=== PATIENT | male | born 1995 | race American Indian/Alaskan Native ===

== ENCOUNTER 2020-04-20 18:02 | Emergency (ER) | payer MEDICAID ==
[2020-04-20 18:25] VITALS: BP 133/72
--- NOTE | 2020-04-20 18:35 | Emergency Department Report ---
Chief Complaint: Back Pain/Injury Stated Complaint: BACK PAIN Time Seen by Provider: 04/20/20 18:34 - HPI History of Present Illness: Patient is a 24-year-old male presents emergency room with complaints of lower back pain that began 5 months ago. He states he has been seeing a chiropractor for this back pain. He has not seen a primary care doctor or a spine doctor. He denies any fall or injury. He denies any fever, vomiting, diarrhea, dysuria, dark urine, abdominal pain, numbness, weakness, bowel or bladder incontinence. Patient denies any past medical history. He denies any daily medications. He denies any allergies to medications. Vitals are stable On exam: Non toxic appearing, no acute distress atraumatic, normocephalic normal appearance of the eyes, PERRL, EOMI, no periorbital edema or ecchymosis moist mucus membranes regular heart rate and rhythm, no gallops, no rubs, no murmurs breath sounds are clear bilaterally, no w/r/r, no stridor, no respiratory distress, no accessory muscle use No paraspinal or spinal C-spine, T-spine, L-spine tenderness palpation, full range of motion, no step-offs, no deformities A&O x4, no focal neuro deficit, normal gait, 5 out of 5 muscle strength in the bilateral upper extremities and bilateral lower extremities, sensation intact throughout skin is warm, dry, intact Patient presents for chronic back pain which has been occurring for 5 months and he has been seeing a chiropractor He has not seen a primary care doctor or orthopedic/spine doctor He has no midline tenderness, no step-offs, no deformities, no focal neuro deficits He has no red flag warning signs of back pain, no trauma, no unexplained weight loss, no neuro deficits, age is not greater than 50, no fever, no IV drug use, no steroid use, no history of cancer Discussed supportive care and symptomatic treatment with patient Patient referred to primary care doctor and orthopedic/spine Discussed strict return precautions with patient Medical screening examination performed and there is no threat to life or limb at this time - Exam Vital Signs: Vital Signs 04/20/20 18:23 Temperature 98.4 F Pulse Rate 72 Respiratory 20 Rate Blood Pressure 133/72 [Right] O2 Sat by Pulse 98 Oximetry MSE screening note: Focused history and physical exam performed. Due to findings the following was ordered: ED Disposition for MSE Clinical Impression: Chronic back pain Qualifiers: Back pain location: low back pain Back pain laterality: bilateral Sciatica presence: without sciatica Qualified Code(s): M54.5 - Low back pain Disposition: MED SCREENING EXAM-LEFT Is pt being admited?: No Does the pt Need Aspirin: No Condition: Stable Instructions: Chronic Pain, Adult Additional Instructions: May alternate Tylenol or ibuprofen as needed for discomfort. May use ice pack, heating pad, rest, Epsom salt bath. Follow-up with a primary care doctor. Fol low-up with orthopedic/spine doctor. Return to emergency room for any new or worsening symptoms. Referrals: [facility] [Provider Group] - 2-3 Days NAT MCCULLOUGH II, MD [Staff Physician] - 2-3 Days BROCK PETERS MD [Staff Physician] - 2-3 Days [facility] [Provider Group] - 2-3 Days [facility], [LAB/CONTRACT] - 2-3 Days Time of Disposition: 18:37 Print Language: SPANISH
== END 2020-04-20 20:33 | disposition left against medical advice (07) ==
LOC: ED 18:02
DX: M54.5 Low back pain (principal); G89.29 Other chronic pain; Z53.21 Procedure and treatment not carried out due to patient leaving prior to being seen by health care provider